=== PATIENT | female | born 1970 | race Caucasian/White ===

== ENCOUNTER 2021-09-12 10:54 | Emergency (ER) | payer BC, SELFPAY ==
[2021-09-12] VITALS (7 sets, daily range): BP systolic 126–148; BP diastolic 78–86; PULSE 64–85; RESP 14–16; TEMP 36.7; O2SAT 97–100
--- NOTE | ~2021-09-12 | CT_ITS ---
EXAMINATION: CT abdomen pelvis w con EXAM DATE: 09/12/2021 14:31 INDICATION: Upper abdominal pain, diarrhea, vomiting. TECHNIQUE: Spiral CT of the abdomen and pelvis was performed following intravenous injection of 100 m L Omnipaque 350. Axial, coronal and sagittal images of the abdomen and pelvis were reviewed. The do se-length product (DLP) for this examination was 192.26 mGy-cm. The exposure was tailored according to patient size (auto mA exposure control), and iterative reconstruction (ASIR) was used as additiona l dose reduction technique. There is no prior study for comparison. FINDINGS: The liver, spleen, adrenal glands and pancreas are unremarkable. Gallbladder is unremarkab le. No biliary obstruction. Portal and splenic veins are patent. Kidneys enhance symmetrically. T here is no hydronephrosis. The uterus is unremarkable. The bladder is unremarkable. There is no retroperitoneal or pelvic lymphadenopathy. The appendix is normal. The stomach and small bowel are unremarkable. There is colonic fluid, corre late for diarrhea. No free intraperitoneal gas. The heart is normal in size. There are no perica rdial or pleural effusions. The lung bases are unremarkable. There are no osteoblastic or osteolyti c lesions identified. IMPRESSION: 1. Colonic fluid, consider gastroenteritis. Reviewed, dictated and finalized at location A.
[2021-09-12 11:39] LABS: Add Urine Microscopic? YES; Appearance Urine Cloudy (Clear); Bacteria Urine Trace /hpf; Bilirubin Urine Negative (Negative); Blood Urine Negative (Negative); Color Urine Yellow (Yellow); Glucose Urine UA Negative (Negative); Ketones Urine Trace mg/dL (Negative); Leukocyte Esterase Ur Trace LEU/UL (Negative); Mucus Urine Heavy /lpf; Nitrate Urine Negative (Negative); Protein Urine Negative (Negative); Specific Grav Ur 1.024 (1.001-1.035); Squamous Epithelial Cell Urine Many /hpf (Few); Urobilinogen Urine Negative mg/dL (<2.0)
[2021-09-12 11:40] LABS: Basophils Percent Auto 0.7 % (0.2-1.2); Eosinophils Absolute Auto 0.2 K/mm3 (0-0.3); Eosinophils Percent Auto 2.8 % (0-4.4); Hematocrit 45.5 % (37.0-47.0); Hemoglobin 15.4 g/dL (12.0-15.0); Immature Granulocyte Absolute 0.01 K/mm3 (0.00-0.031); Immature Granulocyte Percent A 0.2 % (0-0.5); Lymphocytes Absolute Auto 1.75 K/mm3 (0.9-3.2); Lymphocytes Percent Auto 32.7 % (18.3-44.2); Mean Corpuscular HGB Conc 33.8 g/dl (32-36); Mean Corpuscular Hemoglobin 30.9 pg (26-34); Mean Corpuscular Volume 91.4 fl (80-100); Mean Platelet Volume 11.7 fl (7.4-10.4); Monocytes Absolute Auto 0.7 K/mm3 (0.1-0.6); Monocytes Percent Auto 12.5 % (2.6-8.5); Neutrophils Absolute Auto 2.7 K/mm3 (1.3-6.7); Neutrophils Percent Auto 51.1 % (45.5-73.1); Platelet Count Result 219 k/mm3 (150-375); Red Blood Count 4.98 M/mm3 (4.2-5.4); Red Cell Distribution Width 12.7 % (11.5-14.5); White Blood Count 5.4 K/mm3 (4.5-10.0)
[2021-09-12 11:48] LABS: Alanine Aminotransferase 20 U/L (4-35); Alkaline Phosphatase 79 U/L (38-126); Anion Gap 9 mmol/L (8-16); Aspartate Amino Transferase 25 U/L (14-36); Bilirubin,Total 0.6 mg/dL (0.2-1.3); Blood Urea Nitrogen 11 mg/dL (7-17); Calcium 9.5 mg/dL (8.4-10.2); Carbon Dioxide 28 mmol/L (22-30); Chloride 103 mmol/L (98-107); Estimated CRCL calculation 49 ml/min; Estimated Glomerular Filt Rate > 60; Glucose 103 mg/dL (65-110); Lipase 82 U/L (23-300); Potassium 3.6 mmol/L (3.4-5.0); Sodium 140 mmol/L (137-145)
--- NOTE | 2021-09-12 12:19 | PC.NURSE ---
To rm ambulated without difficulty
--- NOTE | 2021-09-12 13:13 | PC.NURSE ---
EDP at bedside
--- NOTE | 2021-09-12 13:22 | ED.NAVMDI ---
HPI - Nausea/Vomiting/Diarrhea General Chief complaint: Nausea/Vomiting/Diarrhea Stated complaint: N/V/D x 4 weeks Time Seen by Provider: 09/12/21 12:36 Source: patient and RN notes reviewed Mode of arrival: ambulatory Limitations: no limitations History of Present Illness HPI Narrative: This is a 50 year old female who presents for evaluation of nausea, vomiting and diarrhea. Patient developed intermittent nausea, vomiting and diarrhea 4 weeks ago. She is having symptoms every 2 days. She reports having worsening diarrhea for past 3 days. She has not have any vomiting in 24 hours . She reports 6 episodes of watery green stool in past 24 hours. She denies blood in her stool, and she denies fever, chills, dizziness. She denies recent antibiotic use or foreign travel. She does work in her health care. She was having intermittent upper abdominal pain but she denies have any pain currently. Related Data Home Medications Medication Instructions Recorded Confirmed atorvastatin 09/12/21 escitalopram oxalate mg DAILY 09/12/21 zolpidem PRN 09/12/21 Allergies Allergy/AdvReac Type Severity Reaction Status Date / Time No Known Allergies Allergy Mild Verified 02/11/08 17:21 Review of Systems Review of Systems: All systems reviewed & are unremarkable except as noted in HPI and below PMFSH Past Medical History Medical History (Updated 09/12/21 @ 15:15 by Dai Vargas MD) Hyperlipidemia Insomnia Social History Social History (Updated 09/12/21 @ 13:28 by Dai Vargas MD) Smoking status: Never smoker Alcohol intake: current Substance use: never Exam Const: General: alert Orientation/consciousness: patient oriented x3 Eyes: EOM: EOMs intact bilaterally Chest: Chest palpation & inspection: normal inspection of the chest Resp: Effort & Inspection: normal respiratory effort and no retractions Auscultation: clear to auscultation bilaterally Cardio: Rate: regular rate Rhythm: regular rhythm Heart sounds: no murmurs GI: GI Palp: Yes Soft to palpation, No Tenderness to palpation present (GI), No Guarding due to palpation present (GI) and No Rigid due to palpation Auscultation: normal bowel sounds : General: Yes no CVA tenderness Back/Spine/Pelvis: Back: no CVA tenderness Skin: General skin exam: normal color Neuro: General: patient oriented x3, moves all extremities and CN's II-XI intact bilaterally Extrem: General: normal to inspection Psych: Mental Status: mental status grossly normal Affect: normal affect Course Reevaluation(s) Reevaluation #1: Patient did not have any diarrhea in ER. CT does not show colitis. I explained follow up with PCP . She will start BRAT diet with probiotics. She is hydrated. I Discussed return precautions with patient. Date: 09/12/21 Time: 15:12 Vital Signs Vital signs: Vital Signs Temperature 98.1 F 09/12/21 11:06 Pulse Rate 85 09/12/21 11:06 Respiratory Rate 16 09/12/21 11:06 Blood Pressure 130/84 09/12/21 11:06 Pulse Oximetry 97 09/12/21 11:06 Temperature 98.1 F 09/12/21 11:06 Pulse Rate 70 09/12/21 15:29 Respiratory Rate 16 09/12/21 15:29 Blood Pressure 129/86 09/12/21 15:29 Pulse Oximetry 100 09/12/21 15:29 MDM - Nausea/Vomiting/Diarrhea Medical Records Attestation: I reviewed the patient's medical records. Lab Data Attestation: I reviewed the patient's lab results. Result diagrams: 09/12/21 11:29 09/12/21 11:29 Labs: Lab Results 09/12/21 09/12/21 09/12/21 Range/Units 11:18 11:29 11:29 WBC 5.4 (4.5-10.0) K/mm3 RBC 4.98 (4.2-5.4) M/mm3 Hgb 15.4 H (12.0-15.0) g/dL Hct 45.5 (37.0-47.0) % MCV 91.4 (80-100) fl MCH 30.9 (26-34) pg MCHC 33.8 (32-36) g/dl RDW 12.7 (11.5-14.5) % Plt Count 219 (150-375) k/mm3 MPV 11.7 H (7.4-10.4) fl Immature Gran % (Auto) 0.2 (0-0.5) % Neut % (Auto) 51.1
[2021-09-12] MEDS: SODIUM CHLORIDE 0.9% IV 1,000 ML 999 ML IV CONT (13:59)
--- NOTE | 2021-09-12 14:27 | PC.NURSE ---
Pt in ct
--- NOTE | 2021-09-12 15:09 | PC.NURSE ---
Edp at bedside.
== END 2021-09-12 15:31 | disposition home or self-care (01) ==
PROVIDERS: Emergency Medicine; Emergency Provider General Practice; PCP Family Medicine
DX: K52.9 Noninfective gastroenteritis and colitis, unspecified (principal); E78.5 Hyperlipidemia, unspecified; G47.00 Insomnia, unspecified; Z79.899 Other long term (current) drug therapy
CPT/HCPCS: 36415; 74177; 80053; 81001; 81025; 83690; 84702; 85025; 87086; 87088; 96360; 99284; J7030; Q9967

== ENCOUNTER 2021-09-12 16:31 | Outpatient (CLI) | payer BC, SELFPAY ==
[2021-09-13 09:14] LABS: Toxigenic C. Diff NEGATIVE (NEGATIVE)
== END 2021-09-12 16:32 | disposition home or self-care (01) ==
LOC: ANHLAB 16:36
PROVIDERS: PCP Family Medicine; Visit Provider General Practice
DX: R19.7 Diarrhea, unspecified (principal)
CPT/HCPCS: 87045; 87427; 87493

== ENCOUNTER 2025-01-02 11:35 | Outpatient (CLI) | payer OTHER, SELFPAY ==
--- NOTE | ~2025-01-02 | MM_ITS ---
EXAMINATION: MM screening emilie BI w cindy HISTORY: Screening TECHNIQUE: Craniocaudal and mediolateral oblique 3-D tomosynthesis images were obtained and synthetic 2-D images were generated. CAD analysis was submitted and interpreted. COMPARISON: No prior mammogram is available for comparison at this institution. BREAST PARENCHYMAL COMPOSITION: Not dense: There are scattered areas of fibroglandular density. FINDINGS: There is no evidence of suspicious mass, calcification, or architectural distortion to sugg est malignancy in either breast. There has been no suspicious interval change. IMPRESSION: 1. No mammographic evidence of malignancy. 2. Recommend routine screening mammography in one year. BI-RADS Category 1: Negative Reviewed, dictated and finalized at location A.
== END 2025-01-02 11:36 | disposition home or self-care (01) ==
LOC: MICIMG 11:36
PROVIDERS: PCP Family Medicine; Visit Provider Nurse Practitioner
DX: Z12.31 Encounter for screening mammogram for malignant neoplasm of breast (principal)
CPT/HCPCS: 77063; 77067